=== PATIENT | female | born 1965 | race Caucasian/White ===

== ENCOUNTER 2020-11-22 04:50 | Emergency (ER) | payer MEDICAID ==
[~2020-11-22] VITALS: Ht 167.6 cm; Wt 63.5 kg
[~2020-11-22 04:50] MED LIST: BUPR75TA3 PO
[2020-11-22] MEDS ORDERED: LORAZEPAM 1 MG TABLET ONE ×2 (05:20→06:11)
[2020-11-22] MEDS ORDERED: ALBUTEROL FS 2.5 MG/3 ML VIAL.NEB ONE (05:29)
[2020-11-22] MEDS ORDERED: predniSONE 20 MG TABLET ONE (05:29)
[2020-11-22] MEDS ORDERED: IPRATROPIUM NEB FS 0.5 MG/2.5 ML AMPUL.NEB ONE (05:29)
[2020-11-22] MEDS ORDERED: LORAZEPAM 1 MG TABLET PO ONE ×2 (05:30→06:30)
[2020-11-22] MEDS ORDERED: predniSONE 20 MG TABLET PO ONE (05:30)
[2020-11-22] MEDS ORDERED: ALBUTEROL FS 2.5 MG/3 ML VIAL.NEB NEB ONE (05:30)
[2020-11-22] MEDS ORDERED: IPRATROPIUM NEB FS 0.5 MG/2.5 ML AMPUL.NEB NEB ONE (05:30)
--- NOTE | 2020-11-22 05:34 | NUR ---
RECEIVED PREDNISONE 60MG (20MG X 3 TABS) FROM [facility] FROM [facility]
[2020-11-22] MEDS ORDERED: ALBU18HF2 INH (06:07)
[2020-11-22 06:20] VITALS: BP 122/66
--- NOTE | 2020-11-22 06:20 | NUR ---
Patient discharged to home in stable condition. Written and verbal after care instructions given. Patient verbalizes understanding of instruction.
== END 2020-11-22 06:20 | disposition home or self-care (01) ==
LOC: ER 04:50
DX: J45.901 Unspecified asthma with (acute) exacerbation (principal); F41.0 Panic disorder [episodic paroxysmal anxiety]; Z88.5 Allergy status to narcotic agent; Z79.899 Other long term (current) drug therapy
CPT/HCPCS: 71045; 93005; 94640; 99284; J7512